=== PATIENT | female | born 1980 | race Caucasian/White ===

== ENCOUNTER 2023-03-29 08:59 | Outpatient (OUT) | payer OTHER, SELFPAY ==
--- NOTE | 2023-03-29 09:37 | RT_ITS ---
The [facility] Test Date: 2023-03-29 Pat Name: Abbie Higuera Department: Room: - Gender: Female Wet [place] Miller Head: Franchesca Grubbs RRT : 1980 Requested By: Brenden Shaikh Order Number: [id number] Reading MD: Brenden Shaikh Interpretive Statements Pulmonary function testing was completed according to ATS criteria. Findings were considered accurate and reproducible. Both pre- and post-bronchodilator values utilized for spirometry. No prior studies available for comparison. Spirometry (based on pre-bronchodilator values): -FEV1/FVC: Normal @ 82% -FEV1: Low normal @ 80% -FVC: Mildly reduced @ 79% -There is a partial bronchodilator response in FEV1 which meets >200mL increase but <12% change. Lung volumes by plethysmography: -RV: Normal @ 98% -TLC: Normal @ 95% Diffusion capacity: -DLCO: Normal @ 87% when corrected for Hb 15.2g/dL Flow-volume loop: -Mild restrictive pattern Impressions: -Spirometry shows a mild restrictive pattern which is not confirmed as TLC is normal. Normal diffusion impairment. A reduced FVC with normal TLC and diffusion capacity suggests an obesity pattern based on stated BMI of 42.4. Clinical correlation required. Electronically Signed On 03-30-2023 14:31:03 EDT by Brenden Shaikh
[2023-03-29 09:41] VITALS: PULSE 71; RESP 18; O2SAT 95
[2023-03-29] MEDS: ALBUTEROL SULFATE 2.5 MG/3 ML VIAL NEB IH (09:41)
[2023-03-29 09:44] VITALS: PULSE 68; RESP 18; O2SAT 98
== END 2023-03-29 09:00 ==
LOC: CARD 08:59
PROVIDERS: PCP Family Medicine; Visit Provider Internal Medicine
DX: R05.2 Subacute cough (principal); R06.02 Shortness of breath
CPT/HCPCS: 94060; 94726; 94729

== ENCOUNTER 2023-11-23 15:44 | Outpatient (OUT) | payer OTHER, SELFPAY ==
--- NOTE | 2023-11-23 15:49 | XR_ITS ---
The [address] [address] Patient Name: DEXTER SORIA MRN: [id number] date: 1980 Sex: F Assigned Patient Location: [facility] Current Patient Location: Accession/Order Number: [id number] Exam Date: 11/23/2023 16:02 Report Date: 11/24/2023 07:23 At the request of: ELIJAH MCCALL Procedure: XR chest 2V EXAMINATION: XR chest 2V HISTORY: chronic cough R053 ; chronic cough for 3 months COMPARISON: No relevant comparison available. FINDINGS: LUNGS: No significant pulmonary parenchymal abnormalities. VASCULATURE: No increased pulmonary vasculature. PLEURA: No pneumothorax, effusion, or pleural thickening. CARDIAC: No cardiomegaly or cardiac silhouette abnormality. MEDIASTINUM: No visible mass or adenopathy. BONES: No fracture or visible bone lesion. OTHER: Negative. XR/XR chest 2V IMPRESSION: 1. No acute cardiopulmonary process or significant chronic interstitial changes. Electronically authenticated by: JAIME VARGAS Date: 11/24/2023 07:23
== END 2023-11-23 15:45 | disposition home or self-care (01) ==
LOC: RAD 15:46
PROVIDERS: PCP Family Medicine; Visit Provider Internal Medicine
DX: R05.3 Chronic cough (principal)
CPT/HCPCS: 71046

== ENCOUNTER 2025-04-11 12:21 | Emergency (ER) | payer OTHER, SELFPAY ==
[2025-04-11 12:26] VITALS: BP 144/100; PULSE 77; TEMP 37.3; O2SAT 97; BMI 39.5
--- NOTE | 2025-04-11 12:40 | CT_ITS ---
The [address] [address] Patient Name: DEXTER SORIA MRN: [id number] date: 1980 Sex: F Assigned Patient Location: ED.MAIN Current Patient Location: Accession/Order Number: [id number] Exam Date: 04/11/2025 13:28 Report Date: 04/11/2025 13:31 At the request of: ELDON SRINIVASAN NP Procedure: CT abdomen pelvis w con CT ABDOMEN AND PELVIS WITH INTRAVENOUS CONTRAST: CLINICAL HISTORY: lower ab pain, bloody stools x 1 wk COMPARISON: None TECHNIQUE: Spiral images were obtained through the abdomen and pelvis following the administration of intravenous contrast. This CT exam was performed using one or more following dose reduction techniques: Automated exposure control, adjustment of the mA and/or kV according to patient size, or use of iterative reconstruction technique. FINDINGS: Lung Bases: [Mild lung scarring] Organs:Hepatic steatosis. Gallbladder portal vein spleen pancreas and adrenal glands all appear unremarkable. No enhancing renal mass or hydronephrosis. Abdominal aortic is normal in caliber.[ GI: Stomach is grossly unremarkable. Small bowel appears nondilated. No acute colonic abnormality.[ Pelvis:[IUD is in place. Urinary bladder is grossly unremarkable.] Peritoneum/Retroperitoneum:No free air or free fluid or lymphadenopathy.[ Abd wall/Bones:Abdominal wall adjacent acute findings. Osseous structures demonstrate degenerative change.[ CT/CT abdomen pelvis w con IMPRESSION: No acute process. Hepatic steatosis. Impression dictated by: Berry Cordon Jr., D.O. 04/11/2025 1:31 PM Dictation Location: [place] [address] Electronically authenticated by: [id number] Y Date: 04/11/2025 13:31
--- NOTE | 2025-04-11 12:43 | ED.GENADUL1 ---
HPI HPI - General Adult General Chief complaint: Abdominal Pain Stated complaint: ABDOMINAL PAIN Time Seen by Provider: 04/11/25 12:26 Source: patient Mode of arrival: walk-in Limitations: no limitations History of Present Illness HPI narrative: The patient is a 44-year-old female who presents to the emergency department today for evaluation concerns for abdominal discomfort and bloody stools. She endorses intermittently over the past 2 weeks she has had lower abdominal discomfort and diarrhea. She reports over the past 3 to 4 days her stools have noted bright red blood present in them. She endorses some nausea without vomiting. She does endorse a reduced appetite due to the symptoms. She mention she is having 10-15 loose episodes of stools a day. No urinary symptoms or back/flank pain. She reports she is followed by gastroenterology out of [facility] and did have a stable colonoscopy earlier this year but was noted she had polyps. She reports a remote history of a cholecystectomy and polypectomy otherwise denies any significant medical history. No fevers. No chest pain, shortness of breath, or dizziness/syncope. Related Data Home Medications ?Medication ?Instructions ?Recorded ?Confirmed No Known Home Medications 04/11/25 04/11/25 Previous Rx's ?Medication ?Instructions ?Recorded pantoprazole 40 mg granules 40 mg PO DAILY #14 ea 04/11/25 delayed-release for susp in packet (Protonix) Allergies Allergy/AdvReac Type Severity Reaction Status Date / Time levofloxacin Allergy Severe Muscle Pain Verified 04/11/25 12:25 Opioid HPI Opioid Management Most Recent Opioid Data: Last Pain Scale 4 Today, 12:45 Review of Systems ROS Status of ROS 10 or more systems reviewed and unremarkable except as noted in history and below PFSH PFSH Social History Little interest or pleasure in doing things: not at all Feeling down, depressed, or hopeless: not at all Exam Narrative Exam Narrative: Constituational: Awake/ alert, no apparent distress, well hydrated HENMT: normocephalic, external ears normal, moist oral mucous membranes and oropharynx normal Eyes: EOMI and conjunctivae normal Neck: ROM intact Chest: inspection of chest normal Respiratory: Normal respiratory effort, clear to auscultation bilaterally Cardio: regular rate and regular rhythm GI: soft to palpation and non-tender Rectal: Normal external exam, + soft rust colored stool present Back: nontender MSK: ROM intact, +NVI Skin: no rashes or petechiae Neuro: no focal deficits Psych: mental status grossly normal Constitutional Vital Signs, click to edit/add: Last Vital Signs Temp 99.1 F 04/11/25 12:26 Pulse 77 04/11/25 12:26 Resp 16 04/11/25 12:26 BP 144/100 H 04/11/25 12:26 Pulse Ox 97 04/11/25 12:26 O2 Del Method Room Air 04/11/25 12:26 Course Vital Signs Vital signs: Vital Signs Temperature 99.1 F 04/11/25 12:26 Pulse Rate 77 04/11/25 12:26 Respiratory Rate 16 04/11/25 12:26 Blood Pressure 144/100 H 04/11/25 12:26 Pulse Oximetry 97 04/11/25 12:26 Oxygen Delivery Method Room Air 04/11/25 12:26 Temperature 99.1 F 04/11/25 12:26 Pulse Rate 77 04/11/25 12:26 Respiratory Rate 16 04/11/25 12:26 Blood Pressure 144/100 H 04/11/25 12:26 Pulse Oximetry 97 04/11/25 12:26 Oxygen Delivery Method Room Air 04/11/25 12:26 Medical Decision Making MDM Narrative Medical decision making narrative: The patient is a nontoxic and well-appearing 44-year-old female who presented to the emergency department today for evaluation of concerns for 1 to 2-week history of intermittent lower abdominal discomfort with diarrhea and bloody stools. Initial examination vital signs overall stable. No acute abdominal findings on exam. She does not appear to be exhibiting any ischemic symptoms and does overall appear euvolemic on exam. Fecal occult is positive for blood. Labs stable as below and showed no significant leukocytosis, anemia, thrombocytopenia. Electrolytes including renal function stable. Mildly elevated LFTs. Normal lipase. UA negative for UTI. CT imaging of abdomen pelvis additionally without critical findings did show some hepatic steatosis. Discussed these findings with the patient including recommendations for supportive care of her abdominal pain and GI bleed. Patient does have establish gastroenterology care out of [facility] in [place] with Dr. Whittington. Reiterated close follow-up with her docketing specialist for reevaluation. For now we will discharge home with Protonix. Discussed signs and symptoms of any worsening condition and when to consider reevaluation by the emergency department. Patient verbalized an understanding of this and is agreeable with the plan to be discharged home. Medical Records Medical records reviewed: Yes I reviewed the patient's medical records Lab Data Lab results reviewed: Yes I reviewed the patient's lab results Labs: Lab Results 04/11/25 04/11/25 04/11/25 Range/Units 12:38 12:45 14:12 WBC 9.7 (4.0-11.0) 10^3/uL RBC 5.16 (4.20-5.40) 10^6/uL Hgb 15.5 (12.0-16.0) g/dL Hct 43.0 (36.0-48.0) % MCV 83.3 (81.0-99.0) fL MCH 30.0 (26.7-34.0) pg MCHC 36.0 H (29.9-35.2) g/dL RDW 13.2 (11.0-15.0) % Plt Count 352 (150-450) 10^3/uL MPV 9.8 (9.5-13.5) fL Neut % (Auto) 69.8 (43.0-75.0) % Lymph % (Auto) 22.4 (20.5-60.0) % Kay % (Auto) 5.3 (1.7-12.0) % Eos % (Auto) 1.8 (0.9-7.0) % Baso % (Auto) 0.5 (0.2-2.0) % Neut # (Auto) 6.8 H (1.4-6.5) 10^3/uL Lymph # (Auto) 2.2 (1.2-3.8) 10^3/uL Kay # (Auto) 0.5 (0.3-0.8) 10^3/uL Eos # (Auto) 0.2 (0.0-0.7) 10^3/uL Baso # (Auto) 0.1 (0.0-0.1) 10^3/uL Abs Immat Gran (auto) 0.02 (0.00-0.03) 10^3/uL Imm/Tot Granulo (auto) 0.2 (0.0-0.5) % Sodium 142 (136-145) mmol/L Potassium 3.7 (3.5-5.1) mmol/L Chloride 106 (98-107) mmol/L Carbon Dioxide 25.6 (21.0-32.0) mmol/L Anion Gap 14.1 BUN 7.0 (7.0-18.0) mg/dL Creatinine 0.43 L (0.55-1.02) mg/dL Est GFR ( Amer) >60 (>=60 mL/min/1.73m^2) Est GFR (Non-Af Amer) >60 (>=60 mL/min/1.73m^2) BUN/Creatinine Ratio 16.3 Glucose 214 H (74-106) mg/dL Calcium 8.8 (8.5-10.1) mg/dL Total Bilirubin 0.8 (0.2-1.0) mg/dL AST 39 H (15-37) U/L ALT 71 H (14-59) U/L Alkaline Phosphatase 105 (46-116) U/L Total Protein 7.2 (6.4-8.2) g/dL Albumin 3.5 (3.4-5.0) g/dL Globulin 3.7 g/dL Albumin/Globulin Ratio 0.9 Lipase 21.0 (16.0-77.0) U/L Urine Color Yellow (YELLOW) Urine Clarity Clear (CLEAR) Urine pH 5.5 (5.0-9.0) Ur Specific [place] 1.010 (1.005-1.025) Urine Protein Negative (NEG/TRACE) mg/dL Urine Glucose (UA) 100 A (NEGATIVE) mg/dL Urine Ketones Trace A (NEGATIVE) mg/dL Urine Occult Blood Moderate A (NEGATIVE) Urine Nitrite Negative (NEGATIVE) Urine Bilirubin Negative (NEGATIVE) Urine Urobilinogen 0.2 (0.2-1.0) EU/dL Ur Leukocyte Esterase Negative (NEGATIVE) Urine RBC 0-2 (0-2) #/HPF Urine WBC 0-2 A (NONE SEEN) #/HPF Ur Squamous Epith Cells Few A (NONE/RARE) #/LPF Urine Crystals None seen (None Seen) #/HPF Urine Bacteria Trace A (NONE SEEN) #/HPF Urine Casts None seen (NONE SEEN) #/LPF Urine Mucus None seen (NONE SEEN) Ur Culture Indicated? No Stool Occult Blood Positive A Imaging Data CT scan - abdomen: Attestation: I have reviewed the pertinent imaging results. Radiologist's impression: ITS Impressions Abdomen/Pelvis CT 04/11/25 12:40 IMPRESSION: No acute process. Hepatic steatosis. Impression dictated by: Berry Cordon Jr., D.O. 04/11/2025 1:31 PM Dictation Location: [place] [address] Electronically authenticated by: [id number] Y Date: 04/11/2025 13:31 Discharge Plan Discharge Chief Complaint: Abdominal Pain Clinical Impression: GI (gastrointestinal bleed) Patient Disposition: Home, Self-Care Prescriptions / Home Meds: New pantoprazole [Protonix] [address] for susp in packet 40 mg PO DAILY Qty: 14 0RF No Action No Known Home Medications Print Language: [place] Instructions: Gastrointestinal Bleeding (ED) Additional Instructions: Follow-up with your docketing specialist for reevaluation as discussed. Take Protonix as prescribed. Avoid any NSAIDs or alcohol. Recommend following a bland diet such as bananas, rice, toast, applesauce, broth. May return to the ER with any new or worsening symptoms/concerns. Referrals: CAMERON WHITTINGTON [Physician, Gastroenterology] - 1 week ANNIE GOLDEN [Primary Care Provider, Family Practice] - 1 week
[2025-04-11 12:54] LABS: Hematocrit 43.0 % (36.0-48.0); Hemoglobin 15.5 g/dL (12.0-16.0); Immature Granulocytes Abs Auto 0.02 10^3/uL (0.00-0.03); Immature Granulocytes Pct Auto 0.2 % (0.0-0.5); Lymphocytes Absolute Auto 2.2 10^3/uL (1.2-3.8); Mean Corpuscular HGB Conc 36.0 g/dL (29.9-35.2); Mean Corpuscular Hemoglobin 30.0 pg (26.7-34.0); Mean Corpuscular Volume 83.3 fL (81.0-99.0); Platelet Count 352 10^3/uL (150-450); Red Blood Count 5.16 10^6/uL (4.20-5.40); White Blood Count 9.7 10^3/uL (4.0-11.0)
[2025-04-11] MEDS: 0.9 % SODIUM CHLORIDE 1,000 ML 1000 ML IV (12:57)
[2025-04-11 13:09] LABS: Alanine Aminotransferase 71 U/L (14-59); Albumin Globulin Ratio 0.9; Albumin Level 3.5 g/dL (3.4-5.0); Alkaline Phosphatase 105 U/L (46-116); Anion Gap 14.1; Aspartate Amino Transferase 39 U/L (15-37); Blood Urea Nitrogen 7.0 mg/dL (7.0-18.0); Calcium 8.8 mg/dL (8.5-10.1); Carbon Dioxide 25.6 mmol/L (21.0-32.0); Chloride 106 mmol/L (98-107); Estimated GFR (African America >60 (>=60 mL/min/1.73m^2); Estimated GFR (Non-African Ame >60 (>=60 mL/min/1.73m^2); Globulin 3.7 g/dL; Glucose 214 mg/dL (74-106); Lipase 21.0 U/L (16.0-77.0); Potassium 3.7 mmol/L (3.5-5.1); Sodium 142 mmol/L (136-145); Total Protein 7.2 g/dL (6.4-8.2)
[2025-04-11 14:18] LABS: Glucose Urine UA 100 mg/dL (NEGATIVE)
[2025-04-11 14:37] LABS: Cast Seen? NONE SEEN #/LPF (NONE SEEN); Crystals Seen? None Seen #/HPF (None Seen); Urine Culture Indicated NO
== END 2025-04-11 14:50 | disposition home or self-care (01) ==
PROVIDERS: Nurse Practitioner; Emergency Provider Emergency Medicine; PCP Family Medicine
DX: K92.1 Melena (principal); Z90.49 Acquired absence of other specified parts of digestive tract; Z86.0100 Personal history of colon polyps, unspecified; K76.0 Fatty (change of) liver, not elsewhere classified
CPT/HCPCS: 36415; 74177; 80053; 81001; 83690; 85025; 99285; G0328; Q9967